=== PATIENT | male | born 1950 | race Two or more races ===

== ENCOUNTER → 2016-09-19 | Outpatient (CLI) | payer OTHER | LOC: EDSTATUS 09:57 → FIMAGING 11:15 | PROVIDERS: ATTEND Physician Assistant | DX: S32.020D Wedge compression fracture of second lumbar vertebra, subsequent encounter for fracture with routine healing (principal); S32.040D Wedge compression fracture of fourth lumbar vertebra, subsequent encounter for fracture with routine healing ==

== ENCOUNTER → 2016-10-31 | Outpatient (CLI) | payer OTHER | LOC: FIMAGING 10:43 → EDSTATUS 10:44 | PROVIDERS: ATTEND Physician Assistant | DX: S32.020D Wedge compression fracture of second lumbar vertebra, subsequent encounter for fracture with routine healing (principal); S32.040D Wedge compression fracture of fourth lumbar vertebra, subsequent encounter for fracture with routine healing ==